=== PATIENT | male | born 1940 | race Caucasian/White ===

== ENCOUNTER → 2023-11-05 06:58 | Outpatient (REF) | payer MEDICARE, SELFPAY | LOC: HWRCS 06:58 | PROVIDERS: ATTENDING PHYSICIAN Internal Medicine Cardiovascular Disease; FAMILY PHYSICIAN Family Medicine | DX: I35.0 Nonrheumatic aortic (valve) stenosis (principal) | CPT/HCPCS: 93306 ==

== ENCOUNTER → 2024-02-09 10:44 | Outpatient (REF) | payer MEDICARE, SELFPAY ==
[2024-02-09 11:08] LABS: % Eosinophils 2.2 % (0-6); % Immature Granulocytes 0.2 % (0-0.5); % Lymphocytes 18.5 % (20.5-51.1); % Monocytes 9.3 % (1.7-9.3); % Neutrophils 68.8 % (42.2-75.2); Absolute Basophils 0.1 10^3/uL (0-0.2); Absolute Eosinophils 0.1 10^3/uL (0-0.7); Absolute Lymphocytes 0.9 10^3/uL (1.2-3.4); Absolute Monocytes 0.5 10^3/uL (0.1-0.6); Absolute Neutrophils 3.4 10^3/uL (1.4-6.5); Hematocrit 35.8 % (39.0-52.0); Hemoglobin 12.4 g/dL (13.0-18.0); Mean Corp Hgb Conc. 34.6 g/dL (33.0-37.0); Mean Corpuscular Hgb 33.7 pg (27.0-31.0); Mean Corpuscular Volume 97.3 fL (80.0-94.0); Mean Platelet Volume 11.4 fL (7.4-10.4); Nucleated Red Blood Cells % 0 % (-); Platelet Count 213 10^3/uL (130-400); Red Blood Cell Count 3.68 10^6/uL (4.70-6.10); Red Cell Dist. Width 13.1 % (11.5-14.5); White Blood Cell Count 4.9 10^3/uL (4.8-10.8)
[2024-02-09 11:20] LABS: INR 1.03; PT 13.6 Sec (11.4-14.6)
[2024-02-09 11:28] VITALS: BP 119/68; BP_SYST 62
[2024-02-09] MEDS: ATIVAN 0.5 MG IV (12:04)
[2024-02-09] MEDS: NSS (PRESERVATIVE FREE) 0.25 ML IV (12:05)
[2024-02-09 13:04] VITALS: BP 132/68
== END ==
LOC: RADI 10:44
PROVIDERS: ATTENDING PHYSICIAN Internal Medicine Hematology & Oncology; FAMILY PHYSICIAN Family Medicine
DX: D47.2 Monoclonal gammopathy (principal); D68.8 Other specified coagulation defects; C88.00 Waldenstrom macroglobulinemia not having achieved remission; D52.9 Folate deficiency anemia, unspecified; D75.89 Other specified diseases of blood and blood-forming organs; D63.1 Anemia in chronic kidney disease; N18.9 Chronic kidney disease, unspecified
CPT/HCPCS: 88305; 88311; 88312; 36415; 38222; 77012; 85025; 85610; 88313

== ENCOUNTER → 2024-06-21 07:17 | Outpatient (REF) | payer MEDICARE, SELFPAY | LOC: HWRAD 07:17 | PROVIDERS: ATTENDING PHYSICIAN Family Medicine | DX: L72.9 Follicular cyst of the skin and subcutaneous tissue, unspecified (principal); R22.32 Localized swelling, mass and lump, left upper limb | CPT/HCPCS: 76882 ==

== ENCOUNTER → 2024-07-20 10:19 | Outpatient (REF) | payer MEDICARE, SELFPAY | LOC: RAD 10:19 | PROVIDERS: ATTENDING PHYSICIAN Family Medicine | DX: L72.9 Follicular cyst of the skin and subcutaneous tissue, unspecified (principal); Y36.90XS War operations, unspecified, sequela | CPT/HCPCS: 70030; 70260 ==

== ENCOUNTER → 2024-08-21 08:25 | Outpatient (REF) | payer MEDICARE, SELFPAY | LOC: RCS 08:25 | PROVIDERS: ATTENDING PHYSICIAN Pain Medicine Interventional Pain Medicine; FAMILY PHYSICIAN Family Medicine | DX: Z01.818 Encounter for other preprocedural examination (principal) | CPT/HCPCS: 93005 ==

== ENCOUNTER → 2024-10-05 07:54 | Outpatient (REF) | payer MEDICARE, SELFPAY | LOC: RAD 07:54 | PROVIDERS: ATTENDING PHYSICIAN Internal Medicine Hematology & Oncology; FAMILY PHYSICIAN Family Medicine | DX: M25.812 Other specified joint disorders, left shoulder (principal); R22.32 Localized swelling, mass and lump, left upper limb | CPT/HCPCS: 76882 ==

== ENCOUNTER → 2024-12-15 08:26 | Outpatient (REF) | payer MEDICARE, SELFPAY | LOC: HWRAD 08:26 | PROVIDERS: ATTENDING PHYSICIAN Orthopaedic Surgery Hand Surgery; FAMILY PHYSICIAN Family Medicine | DX: M12.811 Other specific arthropathies, not elsewhere classified, right shoulder (principal) | CPT/HCPCS: 73200 ==

== ENCOUNTER → 2025-01-25 08:50 | Outpatient (REF) | payer MEDICARE, SELFPAY ==
[2025-01-25 09:32] LABS: Hematocrit 38.3 % (39.0-52.0); Hemoglobin 12.7 g/dL (13.0-18.0); Mean Corp Hgb Conc. 33.2 g/dL (33.0-37.0); Mean Corpuscular Volume 100.0 fL (80.0-94.0); Nucleated Red Blood Cells % 0 % (-); Platelet Count 191 10^3/uL (130-400); Red Cell Dist. Width 13.2 % (11.5-14.5)
[2025-01-25 10:44] LABS: Blood Urea Nitrogen 31 mg/dl (9-20); Calcium 9.2 mg/dl (8.4-10.2); Carbon Dioxide 28 mmol/L (22-30); Chloride 102 mmol/L (98-107); Glucose 91 mg/dl (70-99); Potassium 4.7 mmol/L (3.5-5.1); Sodium 135 mmol/L (135-145); eGFR > 60.00
== END ==
LOC: REG 08:50
PROVIDERS: ATTENDING PHYSICIAN Orthopaedic Surgery Hand Surgery; FAMILY PHYSICIAN Family Medicine
DX: Z01.818 Encounter for other preprocedural examination (principal)
CPT/HCPCS: 36415; 80048; 85025; 93005

== ENCOUNTER → 2025-02-20 12:37 | Outpatient (REF) | payer MEDICARE, SELFPAY | LOC: HWRAD 12:37 | PROVIDERS: ATTENDING PHYSICIAN Physician Assistant; FAMILY PHYSICIAN Family Medicine | DX: M54.16 Radiculopathy, lumbar region (principal) | CPT/HCPCS: 72131 ==

== ENCOUNTER 2025-03-31 09:19 | Emergency (ER) | payer MEDICARE, SELFPAY ==
[2025-03-31 09:23] VITALS: BP 148/79
[2025-03-31 10:41] VITALS: BP 127/62
[2025-03-31 10:43] VITALS: BMI 23.5
[2025-03-31 11:00] VITALS: BP 93/42
[2025-03-31 11:04] LABS: COVID-19 Antigen Negative (Negative)
--- NOTE | 2025-03-31 11:20 | ED.GENMED ---
History of Present Illness
General
Chief Complaint: Cold/Flu/URI Symptoms
Source: patient
Time Seen by Provider: 03/31/25 10:01
History of Present Illness
History of Present Illness:
Note:
CHIEF COMPLAINT(S)
Raspy throat, difficulty swallowing, cough with phlegm, headache.
HISTORY OF PRESENT ILLNESS
The patient is an 85-year-old male presenting with a raspy throat that began on the [place] of [place]. The throat discomfort evolved into severe soreness, making it difficult to swallow, especially cold substances. During the same period, the
patient developed a cough producing significant phlegm and mucus, followed by a headache. The patient reported the symptoms as progressing over time, leading to the cancellation of a family [employer] gathering. The patient expressed concern about
his , given her history of type 2 diabetes and recent health issues. The patient received a flu vaccine in late January, noting it was the senior one. He mentioned being generally very active and was surprised by the sudden onset of these
symptoms. Upon examination, the throat appeared slightly red, with some nasal congestion reported ('I blow a lot'). The patient denies fever but recorded a temperature of 102.1�F during the visit.
PAST MEDICAL AND SURGICAL HISTORY
The patient denies a history of hypertension, diabetes, or heart disease, but reports taking medications to manage blood pressure intermittently.
ADDITIONAL HISTORY OBTAINED FROM SOURCES OTHER THAN THE PATIENT
The patient expressed concerns about his , noting her type 2 diabetes and referring to her recent medical concerns.
CHRONIC MEDICAL CONDITIONS SIGNIFICANTLY AFFECTING CARE
Type 2 diabetes in spouse affecting decisions about current illness due to contagiousness concerns.
EXTERNAL RECORDS REVIEWED
Flu vaccination record from late January, described as �the senior one.�
MEDICATIONS
- Lisinopril, used three times a week for blood pressure control
- Fish oil supplement
- Vitamin B complex
- Unspecified cholesterol medication taken at night
REVIEW OF SYSTEMS
- Ears, Nose, and Tongue: Throat pain and swelling, nasal congestion
- Head: Headache noted
- Respiratory: Cough with phlegm
PHYSICAL EXAM
General: Alert, no acute distress, febrile.
Skin: Warm, dry.
Head: Normocephalic, atraumatic.
Neck: Supple, trachea midline, slight throat redness.
Eye Ears, Nose, Mouth and Throat: Mild throat erythema, moist oral mucosa, nasal congestion noted.
Cardiovascular: Normal peripheral perfusion, No edema.
Respiratory: Respirations are non-labored with phlegm production.
Gastrointestinal: Abdomen nondistended.
Back: Normal range of motion, Normal alignment.
Musculoskeletal: Normal range of motion, normal strength.
Neurological: Alert and oriented to person, place, time, and situation, No focal neurological deficit observed.
Psychiatric: Cooperative, appropriate mood & affect.
PLAN
- Administer Tylenol to manage fever.
- Review chest X-ray and throat swabs to determine any bacterial infection.
- Advise wearing a mask around vulnerable individuals, such as the , to prevent transmission.
- Re-evaluate after reviewing diagnostic results for further treatment plan.
DIFFERENTIAL DIAGNOSIS
The Differential Diagnosis includes, in no particular order and is not limited to:
1. Viral upper respiratory infection
2. Streptococcal pharyngitis
3. Influenza
4. Laryngitis
5. Allergic rhinitis
6. COVID-19 infection
7. Mononucleosis
8. Mycoplasma pneumonia
9. Sinusitis
10. Gastroesophageal reflux disease (GERD) with throat irritation
Disposition:
SUMMARY OF ENCOUNTER
An 85-year-old male presented to the emergency department with complaints of a sore throat, cough, and nasal congestion over the past few days. The patient was febrile with a temperature of 102�F. The patient was evaluated for possible respiratory
infection. A chest x-ray showed no signs of pneumonia. COVID-19 and influenza tests were negative, suggesting a likely viral illness. The patient was treated with azithromycin and prednisone for possible bronchitis and discharged with instructions
for outpatient follow-up.
DISPOSITION
Discharge.
PLAN
The patient will be treated for bronchitis with azithromycin and prednisone, reflecting consideration of a possible bacterial component despite current evidence of a viral illness. The patient will follow up on an outpatient basis for further
evaluation as needed.
INDEPENDENT REVIEW OF LABS AND INTERPRETATION OF TESTS
My independent review of the chest x-ray indicates no evidence of pneumonia. COVID-19 and influenza test results were negative.
MEDICATION RECONCILIATION
- Azithromycin prescribed for suspected bronchitis.
- Prednisone prescribed to help with inflammation associated with respiratory symptoms.
MEDICAL DECISION MAKING
- Number and Complexity of Problems Addressed: Chronic conditions affecting care include the patients history of intermittently treated hypertension. Differential diagnosis includes viral upper respiratory infection, bronchitis, laryngitis, and
allergic rhinitis.
- Data:
- Category 1:
- Non-emergency department records reviewed, including outpatient pharmacy records and a review of recent COVID-19 and influenza test results.
- Category 2:
- Clinical information was supported by input from an independent historian, with concerns about his who has type 2 diabetes (Social Determinants Affecting Health).
- Risk:
Prescription medication was prescribed: azithromycin and prednisone.
CONSIDERATION
Consideration of Admission/Observation: Escalation of care including admission/observation was considered given the complexity and risk of the patients presenting complaint, exam findings, and/or their underlying comorbidities. However, ultimately I
feel the patient is safe for outpatient management with close follow-up. Reasoning: Work-up is reassuring, does not reveal any acute life/organ-threatening processes, patients symptoms are well controlled upon reevaluation, reexamination is
reassuring, vitals are stable, patient agreeable with discharge, reliable for follow-up.
DIAGNOSIS
- Acute viral upper respiratory infection, unspecified (J06.9)
Past History
Past History
ED Past Medical History: HTN, Hypercholesterolemia and Hypothyroidism
ED Past Surgical History: Appendectomy, Orthopedic and Other (Partial thyroid resection)
Social History
Tobacco: Non-smoker
Alcohol: None
Drug: None
Phy Exam
Physical Exam
Physical Exam:
.
Course
Orders/Labs/Results
Orders:
Orders
03/31/25 10:01
CR Chest - 2 Views Urgent
Comment:
Reason For Exam: cough
03/31/25 10:40
COVID-19 Antigen Urgent
Source: Nasal Swab
Influenza A+B Rapid Molecular Urgent
SHAKILA Source: Nasal Swab
Specimen Description:
03/31/25 11:20
Acetaminophen [Tylenol] 1,000 mg PO NOW STA
Vital Signs
Temp: 102.1 F
Initial and Last Documented VS:
Initial Vital Signs
Temp Pulse Resp BP Pulse Ox
99.5 F 98 20 148/79 98
03/31/25 09:23 03/31/25 09:23 03/31/25 09:23 03/31/25 09:23 03/31/25 09:23
Last Documented Vital Signs
Temp Pulse Resp BP Pulse Ox
98.5 F 88 20 102/57 96
03/31/25 13:56 03/31/25 12:01 03/31/25 09:23 03/31/25 12:01 03/31/25 12:01
*Pulse Oximetry
SaO2: 97
Oxygen Mode of Delivery: Room air
Patient hypoxic: no
*Critical Care Note
Total Time (30-74mins, 75-104mins- exclusive of procedures): Not Applicable
ED Attending Note
-
Portions of this chart may have been created with voice recognition software.� Occasional wrong word or��sound alike� substitutions may have occurred due to the inherent limitations of voice recognition software.
Discharge Plan
Departure
Patient Disposition: Home (Routine Discharge)
Date of Disposition: 03/31/25
Time of Disposition: 13:34
Patient with high blood pressure during this ER visit?: No
Discharge Problem:
Acute viral syndrome
Instructions: Viral Upper Respiratory Infection, Adult (DC), Fever, Adult (DC)
Prescriptions:
New
methylprednisolone [Medrol (Mathew)] 4 mg tablets,dose pack
See Rx Instructions .ROUTE .COMPLEX Qty: 21 0RF
Rx Instructions:
orally per package directions
azithromycin [Zithromax Z-Mathew] 250 mg tablet
250 mg PO DAILY 6 Days Qty: 6 0RF
No Action
lisinopril 10 MG tablet
20 mg PO MOWEFR
Patient Comments:
in the am
levothyroxine 75 MCG tablet
75 mcg PO DAILY
atorvastatin 40 MG tablet
40 mg PO QPM
hydrochlorothiazide 25 MG tablet
25 mg PO MOWEFR
acetaminophen [Tylenol Extra Strength] 500 MG tablet
1,000 mg PO QID Qty: 0 0RF
tamsulosin 0.4 mg Capsule
0.4 mg PO HS
aspirin 325 MG tablet
81 mg PO DAILY
Rx Instructions:
with food
vitamin P09-[id number] acid 1-0.8 mg Tablet
1 tab PO DAILY
cholecalciferol (vitamin D3) [Vitamin D3] 25 mcg (1,000 unit) Tablet
25 mcg PO DAILY
Referrals:
Corwin Cox MD [Family Provider, Family Practice]
Activity Restrictions/Additional Instructions:
Please see your doctor next 3 to 5 days if symptoms persist. Return needed for shortness of breath, change in mentation, weakness of any kind or any other concerns. Drink plenty of fluids and use Tylenol for fever control
Interventions
Interventions:
*Risk Screen - Suicide Last Done: 03/31/25 09:23
*General Assessment Last Done: 03/31/25 10:44
*Neglect/Abuse Screening Last Done: 03/31/25 10:44
*ED- Fall Risk Assessment Last Done: 03/31/25 10:44
*ED COVID-19 Vaccine History Last Done: 03/31/25 10:44
*ED Influenza Vaccine History Last Done: 03/31/25 10:44
*Nursing Disposition Last Done: 03/31/25 13:56
ED- Pulmonary Assessment Last Done: 03/31/25 10:00
Discharge Date and Time
Discharge Date/Time: 03/31/25 13:57
Print Language: MALAY
[2025-03-31] MEDS: TYLENOL 1000 MG PO (11:51)
[2025-03-31 12:01] VITALS: BP 102/57
== END 2025-03-31 13:57 | disposition home or self-care (01) ==
LOC: EMR 09:19
PROVIDERS: EMERGENCY PHYSICIAN Emergency Medicine; FAMILY PHYSICIAN Family Medicine
DX: B34.9 Viral infection, unspecified (principal); J06.9 Acute upper respiratory infection, unspecified; E03.9 Hypothyroidism, unspecified; E78.00 Pure hypercholesterolemia, unspecified; I10 Essential (primary) hypertension; E11.9 Type 2 diabetes mellitus without complications; Z90.49 Acquired absence of other specified parts of digestive tract; Z11.52 Encounter for screening for COVID-19
CPT/HCPCS: 99284; 71046; 87502; 87811